=== PATIENT | male | born 1975 | race Caucasian/White ===

== ENCOUNTER 2025-01-19 08:37 | Outpatient (CLI) | payer OTHER, SELFPAY | END 2025-01-19 08:38 | disposition home or self-care (01) | LOC: NFLDREF 01-24 10:37 | PROVIDERS: PCP Family Medicine; Referring Provider Family Medicine; Visit Provider Family Medicine | DX: Z00.00 Encounter for general adult medical examination without abnormal findings (principal); D22.9 Melanocytic nevi, unspecified; N45.1 Epididymitis | CPT/HCPCS: 80048; 80061; G0103 ==